=== PATIENT | female | born 1960 | race Caucasian/White ===

== ENCOUNTER → 2018-05-07 | Day surgery (SDC) | payer OTHER ==
[~2018-05-07] VITALS: Ht 167.6 cm; Wt 85.7 kg
[~2018-05-07] MED LIST: ALPRAZOLAM0.5 M3 PO; ALPRAZOLAM0.5 M4 PO; AMBIEN10 M1 PO; BACLOFEN10 M1 PO; BACTRIM DS 8001 TAB PO; DIOVAN HCT 12.51 TAB PO; FENOFIBRATE145 M1 PO; FLEXERIL10 MG PO; GABAPENTIN300 MG PO; HYDROCODONE/ACE1 TA1 PO; LABETALOL HCL100 M1 PO; LABETALOL HCL200 MG PO; MELOXICAM7.5 MG PO; METFORMIN HCL500 M3 PO; METHOCARBAMOL500 M1 PO; METHOCARBAMOL500 MG PO; MULTIVITAMINS1 EAC9 PO; NAPROSYN 500 M500 MG PO; NEURONTIN300 M1 PO; NORFLEX100 MG PO; OXYCODONE HCL5 M1 PO; OXYCODONE5 M1 PO; PERCOCET 325 MG1 TA2 PO; PRAVASTATIN SOD20 M2 PO; PYRIDIUM100 MG PO; TRICOR 145 MG145 MG PO; VALSARTAN-HCTZ1 EAC1 PO; VICOPROFEN 7.51 TAB PO; ZETIA10 M1 PO; ZETIA10 MG PO; ZOFRAN4 M1 PO; ZOLPIDEM TARTRA10 MG PO
--- NOTE | 2018-05-07 13:16 | Operative Report ---
Operative/Inv Procedure Report Surgery Date: 05/07/18 Name of Procedure: Endoscopic sinus surgery with 1. Nasal septal reconstruction 2. Middle meatal antrotomy with polypoid tissue removal, bilateral 3. Partial ethmoidectomy with polypoid tissue removal, bilateral 4. Middle turbinate reduction, bilateral 5. Inferior turbinate submucous resection, bilateral Pre-Operative Diagnosis: 1. Deviated nasal septum 2. Chronic sinusitis, ethmoid, maxillary, bilateral 3. Turbinate hypertrophy inferior and middle, bilateral Post-Operative Diagnosis: Same Estimated Blood Loss: less than 50ml Surgeon/Protocol Officer: Mahsa Harrington MD Anesthesia: general endotracheal tube Specimens: 1. Nasal septum and inferior turbinates 2. Sinus, ethmoid and maxillary and middle turbinate, left 3. Sinus, ethmoid and maxillary and middle turbinates, right Microbiology: None Complications: Non- Condition: Stable on leaving the OR Operative Indication: Difficulty breathing through the nose, nasal congestion x several years Chronic sinusitis x years, has gotten worse within the last year Patient treated with multiple antibiotics, antihistamines, decongestants, steroid and antihistamine nasal sprays with limited improvement, with improvement but then recurrence Frequent facial pressures and headaches Operative/Procedure Note Note: The patient was brought to the operating room. Placed on the operating room table in supine position. At first timeout was performed identifying the patient, ID numbers and procedure to be performed. Next general oral endotracheal anesthesia was induced. Endotracheal tube was secured with tape over the left corner of the lip. Operating room table was rotated 90 to the left and patient was positioned for septal surgery with head slightly hyperextended and rotated to the right. At first vasoconstriction was carried by application of Afrin spray on cottonoid pledgets. Next nasal septum was injected with 1% lidocaine with 1: 100,000 epinephrine approximately 9 mL was injected on the right and another 3 mL on the last. This followed by placement of cotton pledgets saturated with cocaine solution and Afrin spray. Patient's face was then prepped and draped in routine manner and surgery was performed. A hemitransfixion incision was placed on the right and anterior mucoperichondrial tunnel was elevated followed by posterior mucoperiosteal tunnel. Bony cartilaginous junction was identified and and mucoperiosteal tunnel was elevated on the contralateral side. And anteriorly there was a high deviation to the right including breast quadrangular cartilage and further perpendicular plate of the ethmoid. Posteriorly there was vomerine bone protrusion to the right obstructing the right middle meatus. The anterior superior obstruction was relieved and the piecemeal manner vomerine bone was also removed in a piecemeal fashion until obstruction was relieved posteriorly and a incision was placed into the mucoperiosteum to serve as a drainage hole. Additional bony protrusion was removed for this particular incision. Once the septoplasty was completed, prior to closure, left middle turbinate and middle meatus were injected with 3 mL of 1% lidocaine with 1:100,000 epinephrine. This followed by placement of cottonoid pledgets saturated with Afrin and cocaine. Septoplasty incision was closed with 5-0 chromic simple sutures. Followed by a mattress sutures with 5-0 chromic. Please note that the entire septoplasty was carried with 0 scope as well as directed visualization with a headlight. Upon closure of septoplasty incision injection was carried out on the right. Right middle turbinate and middle meatus were injected with 3 cc of 1% lidocaine with 1:100,000 epinephrine. This followed by placement of cottonoid pledgets saturated with Afrin and cocaine. Next endoscopic sinus surgery was carried out, first on the left and then on the right. The surgery was carried with direct visualization with 0 and 30 scopes. At first on the left, middle turbinate was reduced along its inferior border with Gruenwald forceps. Middle meatus was entered and partial ethmoidectomy was carried. The ethmoid air cells were removed with the straight and up turned to Jake-Blachandlerley forceps. Ethmoid air cells were obstructed with hyperplastic mucosa. There was significant bony hyperostosis. Once ethmoidectomy was completed. Maxillary sinus ostium was explored. Uncinate process was partially removed with Setliff forceps. Curved ball seeker was used to probe for the natural maxillary sinus ostium. The ostium was then dilated with curved suction. Polypoid tissue was removed. Surgery was completed on the left. Next surgery was carried on the right. Again the middle turbinate was reduced along its inferior border with Gruenwald forceps. Then partial ethmoidectomy was carried. Both bone and mucosa were removed. The mucosa was hyperplastic with polypoid changes and bone hyperostotic. Once ethmoidectomy was completed maxillary sinus ostium was searched for. Partial uncinectomy was carried with Setliff forceps. Curved ball seeker was used to search for the maxillary ostium. Ostium was dilated with a curved suction. Polypoid mucosa was removed. Sinus surgery was completed. Next inferior turbinates were then in and outfractured and excised in submucous manner. This was done with 0 scope visualization. Surgery was completed. Nasal packing was applied next. Gelfilm rolled up into a roll was placed into the middle meatus 2 pieces on each side, secured with 2-0 silk which was then taped to the cheeks with Steri-Strips. Nasal fossa was packed with Telfa saturated with Bactroban ointment. Telfa was stitched anteriorly with 2-0 silk to prevent posterior displacement. Surgery was completed. The patient was reawakened, extubated and taken to the recovery room in good condition. There were no complications. Estimated blood was was 30 mL. Findings: 1. Nasal septum- deviated to the right anterior and superior extending to the bony cartilaginous junction, posterior vomerine bone with spurring 2. Ethmoid sinuses- polypoid tissue 3. Maxillary sinuses- polypoid tissue and thickened secretions 4. Middle turbinates- paradoxical curve with obstruction of the middle meatus bilateral 5. Inferior Turbinates- hypertrophy with obstruction of the inferior meatus Discharge Disposition: PACU
== END ==
LOC: STS 01:21
DX: J34.2 Deviated nasal septum (principal); J32.2 Chronic ethmoidal sinusitis; J32.0 Chronic maxillary sinusitis; J34.3 Hypertrophy of nasal turbinates; G50.1 Atypical facial pain; E11.9 Type 2 diabetes mellitus without complications; Z79.84 Long term (current) use of oral hypoglycemic drugs; I10 Essential (primary) hypertension
CPT/HCPCS: J0131; J0690; J1100; J2250; J3490

== ENCOUNTER → 2018-06-22 | Day surgery (SDC) | payer OTHER ==
[~2018-06-22] VITALS: Ht 172.7 cm; Wt 85.7 kg
--- NOTE | 2018-06-22 07:05 | History & Physical Pre-Op ---
General Information and HPI History of Present Illness: Beata is a 58-year-old female worsening complaint of chronic ingrown toenails involving the first digit left and right feet. The patient has undergone multiple in office procedures, which unfortunately have recurred some of them requiring courses of p.o. antibiotics. The patient presents with today for preoperative surgical consultation. Allergies/Medications Allergies: Coded Allergies: adhesive tape (Mild, BLISTERING 05/06/18) aspirin (UNKNOWN 06/21/18) hydrocodone (Mild, VOMITTING 05/06/18) codeine (CHEST PAIN 05/06/18) Home Med list Alprazolam 0.5 MG TABLET 1 TAB PO TID ANXIETY (Reported) Baclofen 10 MG TABLET 1 TAB PO QPM MUSCLE SPASMS (Reported) Ezetimibe (Zetia) 10 MG TABLET 1 TAB PO DAILY CHOLESTEROL (Reported) Fenofibrate Nanocrystallized (Fenofibrate) 145 MG TABLET 1 TAB PO DAILY CHOLESTEROL/TRIGLYCERIDES (Reported) Gabapentin (Neurontin) 300 MG CAPSULE 3 CAP PO TID NERVE PAIN (Reported) Labetalol HCl 100 MG TABLET 1 TAB PO BID BP (Reported) Metformin HCl 500 MG TABLET 2 TAB PO BID DM (Reported) Methocarbamol 500 MG TABLET 1 TAB PO BID MUSCLE SPASMS (Reported) Multiple Vitamin (Multivitamins) 1 EACH TABLET 1 TAB PO DAILY SUPPLEMENT ( Reported) Oxycodone HCl 5 MG TABLET 1 TAB PO TID PAIN (Reported) Pravastatin Sodium 20 MG TABLET 1 TAB PO DAILY CHOLESTEROL (Reported) Valsartan/Hydrochlorothiazide (Valsartan-Hctz 160-12.5 MG Tab) 160 MG-12.5 MG TABLET 1 TAB PO DAILY BP (Reported) Zolpidem Tartrate (Ambien) 10 MG TABLET 1 TAB PO QPM SLEEP (Reported) Past History Medical History Neurological: NONE EENT: NONE Cardiovascular: hypertension, hyperlipidemia Respiratory: NONE Gastrointestinal: NONE Hepatic: NONE Renal: UTI'S BLADDER SUSPENSION 2017 Musculoskeletal: NONE Psychiatric: NONE Endocrine: diabetes Blood Disorders: NONE Cancer(s): NONE COMPUTER HARDWARE ENGINEER/Reproductive: NONE Surgical History Pertinent Surgical History: cholecystectomy, CARPALTUNNEL CERVIAL PLATE AND PINS Review of Systems Review of Systems: Unremarkable except for that noted in history of present illness Exam & Diagnostic Data Last 24 Hrs of Vital Signs/I&O Intake & Output 06/22 0800 06/22 0000 06/21 1600 Intake Total Output Total Balance Patient 189 lb Weight Physical Exam: Lungs clear bilaterally. Heart sounds rate and rhythm regular. Lower extremity physical exam demonstrates intact pedal pulses bilaterally. Both the dorsalis pedis and posterior tibial arteries are palpable bilaterally. Patient without any sensorimotor deficits. Deep tendon reflexes grossly intact. Patient noted to have painful palpation at the margins of the nail folds left and right great toes. 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 A lengthy discussion reviewing both surgical and conservative options was had with the patient at bedside and the patient elected to go forward with surgery despite the risks. As Ranked By This Provider Problem List: 1. Ingrowing nail Attending MD Review Statement Attending Statement Attending MD Statement: examined this patient
--- NOTE | 2018-06-30 11:39 | Operative Report ---
Operative/Inv Procedure Report Surgery Date: 06/22/18 Name of Procedure: 1 local random advancement for closure of open surgical wound right foot 2 local random advancement closure of open surgical wound left foot 3 Cold steel procedure right great toe 4 cold steel procedure left great toe 5 intraoperative menstruation Wenckebach anesthesia Pre-Operative Diagnosis: 1 chronic onychocryptosis right great toe 2 chronic onychocryptosis left great toe Post-Operative Diagnosis: The same Estimated Blood Loss: scant Surgeon/Finance Broker: Mgiuel Ghosh DPM Anesthesia: moderate sedation, block Operative/Procedure Note Note: After obtaining informed consent the patient was brought to the operating room and placed on the operating table in the supine position. The patient was then securely fastened to the operating table utilizing a safety belt. After administration of IV sedation, 10 cc of 0 point percent 5% Marcaine plain was infiltrated about the patient's left and right ankles. Prior to a surgical prep partial temporary nail avulsion to be performed at the medial borders left and right great toes. 2 g of Ancef were delivered intravenously 1 dose. Next, the left and right feet were scrubbed, prepped and draped in the usual aseptic fashion. Attention was directed to the right great toe where a Jimenez type and procedure was performed removing the matrix cells. Next, the flap was developed with undermining, mobilization and advancement of the inferior tissues superiorly. Deep center flap was held 4-0 Vicryl and the skin edges were approximate 4 nylon. The incision was then dressed with Xeroform, 4 x 4's, next , attention was directed to the left great toe, where a Jimenez type procedure was utilized to remove the matrix cells. Next, a flap was developed with undermining, mobilization superior advancement of the adjacent tissues. The deep center flap was held with 4-0 Vicryl and the skin edges were approximate 4 nylon. The incision was dressed with Xeroform, 4 x 4's, Kerlix and Alexis wrap. The patient was noted to tolerate both procedure and anesthesia well and the patient was transported from the operating room to recovery with vital signs stable vascular status intact to all digits bilateral feet.
== END ==
LOC: STS 03:25
DX: L60.0 Ingrowing nail (principal); E11.9 Type 2 diabetes mellitus without complications; Z79.84 Long term (current) use of oral hypoglycemic drugs; I10 Essential (primary) hypertension; L72.0 Epidermal cyst
CPT/HCPCS: J0690; J2001; J2250; J3490